=== PATIENT | male | born 1975 | race Caucasian/White ===

== ENCOUNTER 2023-05-27 10:15 | Emergency (ER) | payer OTHER, SELFPAY ==
--- NOTE | ~2023-05-27 | CT_ITS ---
EXAMINATION: CT SOFT TISSUE NECK WITH CONTRAST CLINICAL INFORMATION: Left tonsillar abscess, difficulty swallowing COMPARISON: None. TECHNIQUE: Following the administration of 60 mL of Omnipaque 350 intravenous contrast, helical imaging was performed in the axial plane with generation of coronal and sagittal reformatted images. This CT examination was performed using dose optimization techniques as appropriate, variously including the following: *Automated exposure control. *Adjustment of mA and/or kV according to patient size (this includes techniques or standardized protocols for targeted exams where dose is matched to indication/reason for exam; i.e. extremities or head). *Use of iterative reconstruction technique. DLP: 777 mGy-cm. FINDINGS: There is asymmetric masslike soft tissue within the left aspect of the oropharynx extending from the level of the soft palate involving the left palatine tonsillar fossa, inferiorly along the left lateral oropharyngeal wall to the left base of tongue projecting into the left vallecula, spanning 3.8 cm in craniocaudal dimension. Findings are highly suspicious for primary oropharyngeal neoplasm. A focus of air within the cranial aspect of the mass, presumably on the basis of cavitation/necrosis. There is associated moderate oropharyngeal narrowing. Conglomerate/adjacent partially cystic/necrotic left level 2A lymph nodes, the larger of which measures 1.5 cm in long axis. The fat planes of the skull base and soft tissues of the nasopharynx are unremarkable. The oral cavity is normal. The laryngeal structures are opposed limiting assessment. Trace mucosal disease within the anterior lateral sphenoid sinuses and right maxillary alveolar recess small retention cyst in the left maxillary sinus alveolar recess. The temporomandibular joints are normal. Bilateral torus mandibulari. The submandibular and parotid glands are normal. The thyroid gland is normal. The partially visualized lung apices are clear. Normal opacification of the major neck vessels. Small disc osteophyte complexes at 5 C6 and C6-C7. The imaged portions of the brain parenchyma are unremarkable. CT/CT soft tissue neck w IV con IMPRESSION: 3.8 cm left sided oropharyngeal mass extending from the level of the soft palate involving the left palatine tonsillar fossa, left lateral oropharyngeal wall, and left base of tongue, highly suspicious for squamous cell carcinoma. A focus of air within the cranial aspect of the mass, presumably on the basis of cavitation/necrosis. Pathologic partially cystic/necrotic left level 2A lymph nodes measuring up to 1.5 cm. Recommend ENT consultation advised to guide further management.
[2023-05-27 10:25] VITALS: BP 146/103; PULSE 75; RESP 16; TEMP 36.3; O2SAT 100; BMI 28.9
--- NOTE | 2023-05-27 11:07 | ED.GENADULT ---
HPI - General Adult General Chief complaint: General Medical Stated complaint: Throat swelling Time Seen by Provider: 05/27/23 10:49 Source: patient, family and RN notes reviewed Mode of arrival: ambulatory Limitations: no limitations History of Present Illness HPI narrative: This is a 47-year-old very pleasant male, with a history of hypertension, presenting to the emergency department, accompanied by his mother, with complaints of sore throat x1 week, difficulty swallowing, and fullness sensation in throat. Patient states that last night he was having trouble sleeping last night as he felt very short of breath because of fullness sensation in his throat. He states he has had difficulty swallowing. He denies any fevers or chills. He does endorse increased fatigue. Denies any dizziness lightheadedness blurry vision, chest pain, shortness of breath, abdominal pain, nausea, vomiting or diarrhea. No history of similar symptoms in the past. He went to an urgent care earlier this morning and was told to come to the emergency room for imaging. He states that he feels as though his voice is muffled. He denies smoking history. He does not use nicotine or tobacco. No history of cancer. No night sweats. He admits to having 20 lb weight loss over the last year however states that he has been actively trying to lose weight with having a more healthy diet and being more active. No other complaints or concerns at this time. MD complaint: Sore throat Onset (ago): week(s) Radiation: non-radiation Severity: moderate Quality: sharp Pain Consistency: intermittent Relieving factors: none Exacerbating factors: none Associated symptoms: denies other symptoms Treatments prior to arrival: none Related Data Allergies Allergy/AdvReac Type Severity Reaction Status Date / Time No Known Allergies Allergy Verified 05/27/23 10:25 Review of Systems Review of Systems: Yes all other systems are reviewed and are negative Constitutional: Constitutional: Reports as per [facility] Social History Social History Alcohol intake: current Alcohol intake frequency: holidays/special occasions only Smoked in Last 30 Days: No Use of substances other than those prescribed or required for medical reasons: Yes Substance Use Type: Marijuana Substance Use Frequency: Daily Last Used Substance: Days (ago) Any prior treatment program specific to substance use: No Advance Directives: Yes Advance Directives Information Provided: Yes Advance Directives on File: No Physical Exam ED Vital Signs: Vital Signs - 24 hr 05/27/23 10:25 Temperature 97.3 F Pulse Rate 75 Respiratory Rate 16 Blood Pressure 146/103 H Pulse Oximetry 100 Oxygen Delivery Method Room Air BMI result Body Mass Index 28.9 Const General: cooperative, comfortable and no acute distress Orientation/consciousness: patient oriented x3 Limitations: no limitations HENMT Other: Left tonsil with moderate hypertrophy, slight erythema, no exudates noted. Uvula is midline. No trismus, drooling, or dysphonia. Head: Yes normal to inspection, Yes normocephalic and Yes atraumatic Ears: hearing grossly normal bilaterally General nose exam: Normal external nose present Face and sinus: Yes normal facial exam Mouth: Normal oral and palatal mucosa present, oropharynx normal and moist mucous membranes Throat: Yes posterior oropharynx normal Eyes General: appearance normal, both eyes and all related structures Eyelids: Yes eyelids normal Conjunctivae: conjunctivae normal Sclerae: sclerae normal Pupils: Equal, round and reactive pupils present EOM: EOMs intact bilaterally Neck Other: Anterior cervical lymphadenopathy noted Neck: Yes normal visual inspection and Yes full ROM Lymphatic: no lymphadenopathy noted Chest Chest palpation & inspection: normal inspection of the chest Resp Effort & Inspection: normal respiratory effort and able to speak in complete sentences Auscultation: clear to auscultation bilaterally, no crackles, no rales, no rhonchi and no wheezes Cardio Rate: regular rate Rhythm: regular rhythm Heart sounds: S1 normal heart sound present and S2 normal heart sound present GI Inspection: Yes normal to inspection Skin General skin exam: no rashes or lesions noted Trauma: no lacerations or abrasions Wounds: no wounds Neuro General: patient oriented x3 and moves all extremities Cranial nerves: Yes Equal, round and reactive pupils present Extrem General: Yes normal to inspection Right upper extremity: normal to inspection Left upper extremity: normal to inspection Right lower extremity: normal to inspection Left lower extremity: normal to inspection Course Reevaluation(s) Reevaluation #1: [facility] called Dr. Caebzas, reports that there is a 3.8 cm left-sided oropharyngeal mass extending from the level of the soft palate involving the left palatine tonsillar fossa, left lateral oral pharyngeal wall, and left base of the tongue, highly suspicious for squamous cell carcinoma. There has a focus of air within the cranial aspect of the mass, presumably on the basis of cavitation/necrosis. Pathologic partially cystic/necrotic left level 2A lymph nodes measuring up to 1.5 cm. Recommending ENT consultation to advise further management. Discussed these findings with patient as well as mother at bedside. I spoke to my attending physician, Dr. Lambert. Given these findings, and that we do not have ENT, patient will need to be transferred for a higher level of care. Call sent out to [facility], who declines transfer at this time. Transfer call placed out to [facility]. ED to ED transfer, with accepting physician, Dr. Jorgensen. Patient and mother are agreeable for transport at this time. Patient remained stable, speaking in full sentences, under no acute respiratory distress. Transfer of care initiated. Time: 12:53 Medications Administered Discontinued Medications Generic Name Dose Route Start Last Admin Trade Name Freq PRN Reason Stop Dose Admin Iohexol 100 ml 05/27/23 12:00 05/27/23 12:00 Iohexol 350 Mg/Ml 100 Ml Infus..Btl IV 05/27/23 12:01 60 ml ONCE ONE Administration Medical Decision Making Medical Decision Making [facility] Narrative: This is a 47-year-old male, with a history of hypertension, presenting to the emergency department with complaints of sore throat x1 week. On arrival, patient mildly hypertensive at 146/103, all other vital signs within normal limits. He is speaking in full sentences. He states that believes his voice is muffled. Also endorsing difficulty swallowing and breathing last night. He went to an urgent care and was told to report here to obtain a CT to rule out peritonsillar mass/abscess. He is able to open and close his jaw without difficulty. On arrival, oropharynx is slightly erythematous, with left tonsillar hypertroph. No trismus, drooling, or dysphonia. Differential diagnoses includes strep pharyngitis, tonsillitis, peritonsillar abscess, tonsillar mass. Lungs clear to auscultation bilaterally. Plan: Labs, CT neck with IV contrast, strep swab Differential Diagnosis Differential Diagnoses: The differential diagnosis associated with the presentation includes See above Admission/Observation Consideration of admission/observation: Escalation of care including admission/observation considered Escalation of care required given Lab Data [facility] Lab Attestation statement: I reviewed the patient's lab results. No leukocytosis, stable H&H, chemistry within normal limits. Negative strep. 05/27/23 11:17 05/27/23 11:17 Labs: Lab Results 05/27/23 05/27/23 Range/Units 11:17 11:42 WBC 4.9 (4.8-10.8) X10*3/uL RBC 5.15 (4.60-5.80) X10*6/uL Hgb 15.3 (14.0-18.0) g/dl Hct 44.2 (42.0-52.0) % MCV 85.8 (80.0-98.0) fL MCH 29.7 (27.0-33.0) pg MCHC 34.6 (31.0-36.0) g/dl RDW 13.2 (11.0-16.0) % Plt Count 170 (160-400) X10*3/uL MPV 9.6 (9.4-12.4) fL Immature Gran % (Auto) 0.2 (0.0-0.4) % Neut % (Auto) 47.0 (45-73) % Lymph % (Auto) 38.9 (20-40) % [place] % (Auto) 9.6 (2-11) % Eos % (Auto) 3.7 (0-4) % Baso % (Auto) 0.6 (0-2) % Lymph # (Auto) 1.9 (1.2-4.9) X10*3/uL [place] # (Auto) 0.5 (0.1-1.2) X10*3/uL Eos # (Auto) 0.2 (0.0-0.4) X10*3/uL Baso # (Auto) 0.0 (0.0-0.2) X10*3/uL Abs Immat Gran (auto) 0.01 (0.00-0.03) X10*3/uL Absolute Neuts (auto) 2.3 (2.0-8.3) x10*3/uL Absolute Nucleated RBC 0.000 (0.0-0.012) X10*3/uL Nucleated RBC % (auto) 0.0 (0.0-0.2) /100WBC Sodium 141 (135-145) mmol/L Potassium 4.8 (3.3-5.1) mmol/L Chloride 107 (96-108) mmol/L Carbon Dioxide 27 (22-29) mmol/L Anion Gap 12 (12-20) BUN 11 (9-16) mg/dL Creatinine 1.07 (0.5-1.4) mg/dL Estim Creat Clear Calc 93.1 Estimated GFR > 60 Random Glucose 93 (60-115) mg/dL Calcium 9.0 (8.4-10.2) mg/dL Total Bilirubin 0.5 (0.0-1.0) mg/dL Direct Bilirubin 0.2 (0.0-0.5) mg/dL AST 18 (5-37) U/L ALT 19 (0-40) U/L Alkaline Phosphatase 63 (39-117) U/L Total Protein 6.8 (6.5-8.0) g/dL Albumin 4.0 (3.5-5.0) g/dL S. pyogenes GrpA ARYA Negative (Negative) Radiology Impression Discussion of test interpretation with radiology: I have reviewed the radiologist's reading. Radiologist Impression: CLINICAL INFORMATION: Left tonsillar abscess, difficulty swallowing COMPARISON: None. TECHNIQUE: Following the administration of 60 mL of Omnipaque 350 intravenous contrast, helical imaging was performed in the axial plane with generation of coronal and sagittal reformatted images. This CT examination was performed using dose optimization techniques as appropriate, variously including the following: *Automated exposure control. *Adjustment of mA and/or kV according to patient size (this includes techniques or standardized protocols for targeted exams where dose is matched to indication/reason for exam; i.e. extremities or head). *Use of iterative reconstruction technique. DLP: 777 mGy-cm. FINDINGS: There is asymmetric masslike soft tissue within the left aspect of the oropharynx extending from the level of the soft palate involving the left palatine tonsillar fossa, inferiorly along the left lateral oropharyngeal wall to the left base of tongue projecting into the left vallecula, spanning 3.8 cm in craniocaudal dimension. Findings are highly suspicious for primary oropharyngeal neoplasm. A focus of air within the cranial aspect of the mass, presumably on the basis of cavitation/necrosis. There is associated moderate oropharyngeal narrowing. Conglomerate/adjacent partially cystic/necrotic left level 2A lymph nodes, the larger of which measures 1.5 cm in long axis. The fat planes of the skull base and soft tissues of the nasopharynx are unremarkable. The oral cavity is normal. The laryngeal structures are opposed limiting assessment. Trace mucosal disease within the anterior lateral sphenoid sinuses and right maxillary alveolar recess small retention cyst in the left maxillary sinus alveolar recess. The temporomandibular joints are normal. Bilateral torus mandibulari. The submandibular and parotid glands are normal. The thyroid gland is normal. The partially visualized lung apices are clear. Normal opacification of the major neck vessels. Small disc osteophyte complexes at 5 C6 and C6-C7. The imaged portions of the brain parenchyma are unremarkable. CT/CT soft tissue neck w IV con IMPRESSION: 3.8 cm left sided oropharyngeal mass extending from the level of the soft palate involving the left palatine tonsillar fossa, left lateral oropharyngeal wall, and left base of tongue, highly suspicious for squamous cell carcinoma. A focus of air within the cranial aspect of the mass, presumably on the basis of cavitation/necrosis. Pathologic partially cystic/necrotic left level 2A lymph nodes measuring up to 1.5 cm. Recommend ENT consultation advised to guide further management. Dictated By: Nadja Cabezas Independent Historian Clinical information obtained from an independent historian. History obtained from or confirmed by: Parent Discharge Plan Discharge Clinical Impression: Oropharyngeal mass Patient Disposition: [facility] Transfer Details: ED to ED transfer > [facility]> Dr. Jorgensen
[2023-05-27 11:22] LABS: MANUAL DIFF FLAG NO
[2023-05-27 11:23] LABS: Basophils Percent Auto 0.6 % (0-2); Eosinophils Absolute Auto 0.2 X10*3/uL (0.0-0.4); Eosinophils Percent Auto 3.7 % (0-4); Hematocrit 44.2 % (42.0-52.0); Hemoglobin 15.3 g/dl (14.0-18.0); Imm Gran Abs Auto 0.01 X10*3/uL (0.00-0.03); Imm Gran Pct Auto 0.2 % (0.0-0.4); Lymphocytes Absolute Auto 1.9 X10*3/uL (1.2-4.9); Lymphocytes Percent Auto 38.9 % (20-40); Mean Corpuscular HGB Conc 34.6 g/dl (31.0-36.0); Mean Corpuscular Hemoglobin 29.7 pg (27.0-33.0); Mean Corpuscular Volume 85.8 fL (80.0-98.0); Mean Platelet Volume 9.6 fL (9.4-12.4); Monocytes Absolute Auto 0.5 X10*3/uL (0.1-1.2); Monocytes Percent Auto 9.6 % (2-11); Neutrophils Absolute Auto 2.3 x10*3/uL (2.0-8.3); Platelet Count 170 X10*3/uL (160-400); Red Blood Count 5.15 X10*6/uL (4.60-5.80); Red Cell Distribution Width 13.2 % (11.0-16.0); White Blood Count 4.9 X10*3/uL (4.8-10.8)
[2023-05-27 11:40] LABS: Alanine Aminotransferase 19 U/L (0-40); Alkaline Phosphatase 63 U/L (39-117); Anion Gap 12 (12-20); Aspartate Amino Transferase 18 U/L (5-37); Bilirubin Direct 0.2 mg/dL (0.0-0.5); Bilirubin Total 0.5 mg/dL (0.0-1.0); Blood Urea Nitrogen 11 mg/dL (9-16); Carbon Dioxide 27 mmol/L (22-29); Chloride 107 mmol/L (96-108); Creatinine Clr Calc Pharmacy 93.1; Estimated Glomerular Filt Rate > 60; Glucose Random 93 mg/dL (60-115); Potassium 4.8 mmol/L (3.3-5.1); Sodium 141 mmol/L (135-145); Total Protein 6.8 g/dL (6.5-8.0)
[2023-05-27 11:53] LABS: IDNOW Serial# 08D9AD1C; Strep A Nucleic Acid Negative (Negative)
[2023-05-27] MEDS: iohexoL 350 MG/ML 100 ML INFUS..BTL IV (12:00)
[2023-05-27 14:32] VITALS: BP 156/89; PULSE 56; RESP 16; TEMP 36.7; O2SAT 99
== END 2023-05-27 16:40 | disposition short-term general hospital (02) ==
PROVIDERS: Physician Assistant Medical; Emergency Provider Emergency Medicine; PCP Internal Medicine
DX: J39.2 Other diseases of pharynx (principal); I10 Essential (primary) hypertension
CPT/HCPCS: 36415; 70491; 80048; 80076; 85025; 87651; 99284; 99285; Q9967

== ENCOUNTER 2024-01-21 15:52 | Emergency (ER) | payer OTHER, SELFPAY ==
--- NOTE | ~2024-01-21 | CT_ITS ---
EXAMINATION: CT ANGIOGRAM HEAD CT ANGIOGRAM NECK CLINICAL INFORMATION: Left bipolar vision. Right foot drop. History of tonsillar cancer/abscess. COMPARISON: CT head and cervical spine from 01/21/2024. TECHNIQUE: Initial noncontrast director of marketing analytics imaging of the head and neck was performed. Comparison is made with noncontrast head CT from earlier today. Test bolus sequences followed by intravenous administration 70 mL of Omnipaque 350. Helical imaging was performed in the axial plane from the aortic arch to the skull vertex. Delayed postcontrast imaging of the head was also performed. The data was processed at the mechatronics technologist's workstation for generation of MIP sequences. Angled MIPs and volume rendered reformatted images were also generated at an offline 3D workstation. Stenoses are assessed in accordance with NASCET criteria unless otherwise indicated. This CT examination was performed using dose optimization techniques as appropriate, variously including the following: *Automated exposure control. *Adjustment of mA and/or kV according to patient size (this includes techniques or standardized protocols for targeted exams where dose is matched to indication/reason for exam; i.e. extremities or head). *Use of iterative reconstruction technique. DLP: 1383 mGy-cm FINDINGS: CT Head: There is no evidence of acute intracranial hemorrhage or edematous territorial infarction. Cheng-white matter differentiation is preserved. There is no abnormal attenuation within the brain parenchyma. The ventricles are normal in morphology and size. No evidence for obstructive hydrocephalus. The suprasellar cistern remains widely patent. Normal positioning of the cerebellar tonsils. Mild prominence of the CSF space posterior to the cerebellum. No additional abnormal mass effect or midline shift. No extra-axial fluid collections. No demonstrated abnormal intracranial enhancement or regions of oligemia. No acute soft tissue or osseous abnormalities. Mild mucosal thickening of the paranasal sinuses. The mastoid air cells and middle ear cavities are clear. Left-sided lens extraction. No additional demonstrated abnormalities of the orbits on limited evaluation. CT Neck: The atlantooccipital and atlantoaxial articulations remain well aligned. Straightening of the normal cervical lordosis. Otherwise, there is anatomic alignment of the vertebral bodies and posterior elements. No evidence of acute fracture or subluxation. The vertebral body heights are maintained. Moderate degenerative disc disease from C5-C7. Facet and uncovertebral joint arthropathy leads to osseous encroachment on the neural foramina from C5-C7. There is no prevertebral soft tissue swelling. Chronic smooth mucosal thickening/edema of the pharynx/epiglottis suggestive of posttreatment change. Mild to moderate fat stranding in the left deep soft tissues of the neck. The thyroid gland and remaining cervical soft tissues are within normal limits. The lung apices demonstrate no abnormalities. CT Upper Chest: Nonspecific subcentimeter groundglass opacities in the visualized right upper lobe. Otherwise, the visualized lung apices and upper mediastinum are within normal limits. Neck CTA: Aortic Arch: Normal contour and caliber with mild calcific atherosclerotic disease. Classic 3 vessel branching pattern of the aortic arch. Great Vessel Origins: No significant stenosis of the branch origins. Right Common Carotid Artery: No focal stenosis or occlusion. Cervical Right Internal Carotid Artery: Normal opacification without focal stenosis or occlusion. Left Common Carotid Artery: No focal stenosis or occlusion. Cervical Left Internal Carotid Artery: Mild calcific atherosclerotic disease of the carotid bulb and proximal internal carotid artery without flow-limiting stenosis. Cervical Right Vertebral Artery: Co-dominant. No focal stenosis or occlusion. Cervical Left Vertebral Artery: Co-dominant. No focal stenosis or occlusion. Brain CTA: Intracranial Internal Carotid Arteries: Calcific atherosclerotic disease of the intracranial internal carotid arteries without occlusion or flow-limiting stenosis. Right Anterior Cerebral Artery: Normal A1 segment. Normal opacification of the distal JUSTUS segments. Left Anterior Cerebral Artery: Normal A1 segment. Normal opacification of the distal JUSTUS segments. Anterior Communicating Artery: Normal. Right Middle Cerebral Artery: Normal M1 segment of the MCA without focal stenosis or occlusion. Normal arborization of the distal segments. Left Middle Cerebral Artery: Normal M1 segment of the MCA without focal stenosis or occlusion. Normal arborization of the distal segments. Right Vertebral Artery: Normal V4 segment. Normal opacification of the proximal segments of the posterior inferior cerebellar artery. Left Vertebral Artery: Normal V4 segment. Normal opacification of the proximal segments of the posterior inferior cerebellar artery. Basilar Artery: Normal without focal stenosis or occlusion. Normal appearance of the proximal superior cerebellar arteries. Right Posterior Cerebral Artery: Normal P1 segment. Normal opacification of the distal DAY HABILITATION SUPERVISOR segments. Left Posterior Cerebral Artery: Normal P1 segment. Normal opacification of the distal DAY HABILITATION SUPERVISOR segments. Normal opacification of the superior sagittal, straight, transverse, and sigmoid sinuses. CT/CT angio head neck IMPRESSION: 1. No evidence of acute intracranial hemorrhage or edematous territorial infarction. 2. CTA of the head and neck without proximal occlusion or flow-limiting stenosis. 3. Chronic smooth mucosal thickening/edema of the pharynx/epiglottis suggestive of posttreatment change. Mild to moderate fat stranding in the left deep soft tissues of the neck. 4. Nonspecific subcentimeter groundglass opacities in the visualized right upper lobe. Electronically signed by: Baltazar Saenz DO 01/22/2024 12:41 AM [facility]
--- NOTE | ~2024-01-21 | CT_ITS ---
EXAMINATION: CT HEAD WITHOUT CONTRAST CT CERVICAL SPINE WITHOUT CONTRAST CLINICAL INFORMATION: Blurry vision . History of tonsillar cancer/abscess. COMPARISON: CT neck from 05/27/2023. PET/CT from 11/27/2023. TECHNIQUE: Contiguous axial imaging was performed from the skull base to vertex without intravenous administration of contrast. Contiguous axial imaging was performed from the upper chest through the skull base without intravenous administration of contrast. Coronal and sagittal reformats were obtained at the acquisition workstation. This CT examination was performed using dose optimization techniques as appropriate, variously including the following: *Automated exposure control. *Adjustment of mA and/or kV according to patient size (this includes techniques or standardized protocols for targeted exams where dose is matched to indication/reason for exam; i.e. extremities or head). *Use of iterative reconstruction technique. DLP: 1037 mGy-cm FINDINGS: Head: There is no evidence of acute intracranial hemorrhage or edematous territorial infarction. Cheng-white matter differentiation is preserved. There is no abnormal attenuation within the brain parenchyma. The ventricles are normal in morphology and size. No evidence for obstructive hydrocephalus. The suprasellar cistern remains widely patent. Normal positioning of the cerebellar tonsils. Mild prominence of the CSF space posterior to the cerebellum. No additional abnormal mass effect or midline shift. No extra-axial fluid collections. No acute soft tissue or osseous abnormalities. Mild mucosal thickening of the paranasal sinuses. The mastoid air cells and middle ear cavities are clear. Left-sided lens extraction. No additional demonstrated abnormalities of the orbits on limited evaluation. Cervical Spine: The atlantooccipital and atlantoaxial articulations remain well aligned. Straightening of the normal cervical lordosis. Otherwise, there is anatomic alignment of the vertebral bodies and posterior elements. No evidence of acute fracture or subluxation. The vertebral body heights are maintained. Moderate degenerative disc disease from C5-C7. Facet and uncovertebral joint arthropathy leads to osseous encroachment on the neural foramina from C5-C7. There is no prevertebral soft tissue swelling. Chronic smooth mucosal thickening/edema of the pharynx/epiglottis suggestive of posttreatment change. Mild to moderate fat stranding in the left deep soft tissues of the neck. The thyroid gland and remaining cervical soft tissues are within normal limits. The lung apices demonstrate no abnormalities. CT/CT cervical spine wo IV con IMPRESSION: 1. No evidence of acute intracranial hemorrhage or edematous territorial infarction. 2. No evidence of acute fracture or traumatic subluxation of the cervical spine. Mild to moderate degenerative spondyloarthropathy of the cervical spine. 3. Chronic smooth mucosal thickening/edema of the pharynx/epiglottis suggestive of posttreatment change. Mild to moderate fat stranding in the left deep soft tissues of the neck. Electronically signed by: Baltazar Saenz DO 01/21/2024 06:56 PM [facility]
[2024-01-21 15:59] VITALS: BP 157/97; PULSE 70; RESP 20; TEMP 36.1; O2SAT 100; BMI 22.3
--- NOTE | 2024-01-21 16:00 | ED_ITS ---
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 He also notes Sunday had 1 hour of L eye blurred vision but no headaches. He was referred here to evaluate for possible stroke. Foot drop remains but L eye blurred vision is gone. MD complaint: foot drop, blurred vision Onset (ago): day(s) (Sunday) Location: eyes, right and lower extremity Radiation: non-radiation Relieving factors: immobilization Exacerbating factors: movement Associated symptoms: denies other symptoms Treatments prior to arrival: none Related Data Allergies Allergy/AdvReac Type Severity Reaction Status Date / Time No Known Allergies Allergy Verified 01/21/24 16:02 Review of Systems 2 Review of Systems: Constitutional : No Fever, No Chills, No Fatigue ENT/Mouth : No sore throat, No Rhinorrhea Eyes: No Eye Pain, No Swelling, No Redness Cardiovascular : No Chest Pain, No SOB, No Dyspnea on Exertion Respiratory : No Cough, No Sputum Gastrointestinal : No Nausea, No Vomiting, No Diarrhea, No abdominal Pain Genitourinary : No Dysuria, No Urinary Frequency, No Hematuria, Musculoskeletal : No joint pain, No Myalgias, No Joint Swelling Skin : No Skin Lesions, No rash Neuro : pos Weakness, pos Numbness, No Dizziness, no Headache Psych : No Anxiety/Panic, No Depression All other systems reviewed and are negative [facility] Past Medical History Attestation statement: The following information was validated with the patient. Medical History Hypothyroidism Tonsil cancer Neuropathy Social History Social History Alcohol intake: current Alcohol intake frequency: holidays/special occasions only Substance Use Type: Marijuana Advance Directives: No Advance Directives Information Provided: No Physical Exam ED Vital Signs: Vital Signs - 24 hr 01/21/24 15:59 01/21/24 22:36 Temperature 96.9 F 98.0 F Pulse Rate 70 55 Respiratory Rate 20 16 Blood Pressure 157/97 H 139/91 H Pulse Oximetry 100 100 Oxygen Delivery Method Room Air Room Air BMI result Body Mass Index 22.3 Appearance: Alert. Oriented X3. No acute distress. Eyes: Pupils equal, round and reactive to light. ENT: Pharynx normal. Neck: Normal inspection. Neck supple. CVS: Normal heart rate and rhythm. Pulses normal. Respiratory: No respiratory distress. Breath sounds normal. Abdomen: Soft and non-tender. Skin: Skin warm and dry. Normal skin color. Normal skin turgor. Extremities: No lower extremity edema. Neuro: Oriented X 3. No motor deficit. No sensory deficit. no visual changes R foot difficulty with dorsiflexion has pain as well anterior calero at times with trying to move - has normal ROM of knee and hip. pulses intact, states the leg feels heavy, no joint effusion, no redness, no swelling. No other deficits noted. Course Course Course Narrative: RME performed by Emani Garza PA-C. Patient is a 48 year old assigned male at presenting to the emergency department with right foot drop, left eye blurry vision, and bilateral fingers and toes numbness. Patient states that he a history of tonsilary cancer that he had chemo and radiation for earlier this year. Detailed physical exam and review of systems are deferred to the warehouse stocker. Labs ordered. Patient placed back in the waiting room pending room availability and results. 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 Possible neuropathy and peripheral nerve issue but his blurry vision is odd. Could be MS vs TIA. Symptoms started Saturday if CTA negative will instruct him to take low dose baby aspirin Differential Diagnosis Differential Diagnoses: The differential diagnosis associated with the presentation includes neuropathy, stroke symptoms, TIA, foot drop peripheral nerve issue, MS Admission/Observation Consideration of admission/observation: Escalation of care including admission/observation considered CTA negative at 48 hours - has foot drop at this time will refer to PCP for further outpatient work up including MRI not in afib, no stenosis on CTA, no mass seems peripheral, blurred vision L eye atypical and on differing sides and areas of circulation will place in boot and DC home Lab Data [facility] Lab Attestation statement: I reviewed the patient's lab results. 01/21/24 16:08 01/21/24 16:08 Labs: Lab Results 01/21/24 01/21/24 Range/Units 16:08 23:00 WBC 3.6 L (4.8-10.8) X10*3/uL RBC 4.56 L (4.60-5.80) X10*6/uL Hgb 13.4 L (14.0-18.0) g/dl Hct 38.7 L (42.0-52.0) % MCV 84.9 (80.0-98.0) fL MCH 29.4 (27.0-33.0) pg MCHC 34.6 (31.0-36.0) g/dl RDW 14.2 (11.0-16.0) % Plt Count 123 L D (160-400) X10*3/uL MPV 9.4 (9.4-12.4) fL Immature Gran % (Auto) 0.3 (0.0-0.4) % Neut % (Auto) 67.4 (45-73) % Lymph % (Auto) 19.8 L (20-40) % [place] % (Auto) 10.3 (2-11) % Eos % (Auto) 1.4 (0-4) % Baso % (Auto) 0.8 (0-2) % Lymph # (Auto) 0.7 L (1.2-4.9) X10*3/uL [place] # (Auto) 0.4 (0.1-1.2) X10*3/uL Eos # (Auto) 0.1 (0.0-0.4) X10*3/uL Baso # (Auto) 0.0 (0.0-0.2) X10*3/uL Abs Immat Gran (auto) 0.01 (0.00-0.03) X10*3/uL Absolute Neuts (auto) 2.4 (2.0-8.3) x10*3/uL Absolute Nucleated RBC 0.000 (0.0-0.012) X10*3/uL Nucleated RBC % (auto) 0.0 (0.0-0.2) /100WBC ESR 3 (0-15) MM/HR Sodium 139 (135-145) mmol/L Potassium 4.0 (3.3-5.1) mmol/L Chloride 104 (96-108) mmol/L Carbon Dioxide 26 (22-29) mmol/L Anion Gap 13 (12-20) BUN 18 H (9-16) mg/dL Creatinine 1.12 (0.5-1.4) mg/dL Estim Creat Clear Calc 89.0 Estimated GFR > 60 Random Glucose 91 (60-115) mg/dL Calcium 9.4 (8.4-10.2) mg/dL Magnesium 2.2 (1.6-2.6) mg/dL Total Bilirubin 0.5 (0.0-1.0) mg/dL AST 31 (5-37) U/L ALT 25 (0-40) U/L Alkaline Phosphatase 62 (39-117) U/L C-Reactive Protein 0.11 (< or = 0.50) mg/dL Total Protein 6.8 (6.5-8.0) g/dL Albumin 4.2 (3.5-5.0) g/dL Triglycerides 66 (<150) mg/dL Cholesterol 217 H (<200) mg/dL LDL Cholesterol, Calc 120 H (<100) mg/dL HDL Cholesterol 84 (>40) mg/dL Independent Interpretation I performed an independent interpretation of an: EKG and CT Scan (no mass on initial CT scan) Interpretation: Rate: 57 Rhythm: sinus bradycardia Sharples: normal Normal P waves. Normal LILIAM. Normal QRS complex. ST T wave : normal no MAE qTC: 420 prior studies: no acute ischemia The study has been interpreted contemporaneously by me. . Radiology Impression Discussion of test interpretation with radiology: I have reviewed the radiologist's reading. Independent Historian Clinical information obtained from an independent historian. History obtained from or confirmed by: Parent External Record Review External record reviewed: Outpatient record Discharge Plan Discharge Clinical Impression: Foot drop, right Patient Disposition: Home, Self-Care Instructions: Foot Drop (ED) Additional Instructions: labs reassuring other than mildly low platelets at 123, EKG normal CTA of head and neck no acute stenosis of blood vessels or occlusion no signs of stroke at this time would recommend MRI with PCP and wear walking boot you will need EMG as well Print Language: Tamazight
[2024-01-21 16:13] LABS: MANUAL DIFF FLAG NO
[2024-01-21 16:20] LABS: Basophils Percent Auto 0.8 % (0-2); Eosinophils Absolute Auto 0.1 X10*3/uL (0.0-0.4); Eosinophils Percent Auto 1.4 % (0-4); Hematocrit 38.7 % (42.0-52.0); Hemoglobin 13.4 g/dl (14.0-18.0); Imm Gran Abs Auto 0.01 X10*3/uL (0.00-0.03); Imm Gran Pct Auto 0.3 % (0.0-0.4); Lymphocytes Absolute Auto 0.7 X10*3/uL (1.2-4.9); Lymphocytes Percent Auto 19.8 % (20-40); Mean Corpuscular HGB Conc 34.6 g/dl (31.0-36.0); Mean Corpuscular Hemoglobin 29.4 pg (27.0-33.0); Mean Corpuscular Volume 84.9 fL (80.0-98.0); Mean Platelet Volume 9.4 fL (9.4-12.4); Monocytes Absolute Auto 0.4 X10*3/uL (0.1-1.2); Monocytes Percent Auto 10.3 % (2-11); Neutrophils Absolute Auto 2.4 x10*3/uL (2.0-8.3); Neutrophils Percent Auto 67.4 % (45-73); Platelet Count 123 X10*3/uL (160-400); Red Blood Count 4.56 X10*6/uL (4.60-5.80); Red Cell Distribution Width 14.2 % (11.0-16.0); White Blood Count 3.6 X10*3/uL (4.8-10.8)
[2024-01-21 16:31] LABS: Alanine Aminotransferase 25 U/L (0-40); Albumin Level 4.2 g/dL (3.5-5.0); Alkaline Phosphatase 62 U/L (39-117); Anion Gap 13 (12-20); Aspartate Amino Transferase 31 U/L (5-37); Bilirubin Total 0.5 mg/dL (0.0-1.0); Blood Urea Nitrogen 18 mg/dL (9-16); Calcium 9.4 mg/dL (8.4-10.2); Carbon Dioxide 26 mmol/L (22-29); Chloride 104 mmol/L (96-108); Estimated Glomerular Filt Rate > 60; Glucose Random 91 mg/dL (60-115); Magnesium 2.2 mg/dL (1.6-2.6); Sodium 139 mmol/L (135-145); Total Protein 6.8 g/dL (6.5-8.0)
[2024-01-21 22:36] VITALS: BP 139/91; PULSE 55; RESP 16; TEMP 36.7; O2SAT 100
--- NOTE | 2024-01-21 22:47 | ECG_ITS ---
Test Reason : STROKE SYMPTONS Blood Pressure : / mmHG Vent. Rate : 057 BPM Atrial Rate : 057 BPM P-R Int : 154 ms QRS Dur : 092 ms QT Int : 432 ms P-R-T Axes : 037 012 024 degrees QTc Int : 420 ms Sinus bradycardia Otherwise normal ECG No previous ECGs available Referred By: Caterina Hanson Electronically Signed By:Aiden Mckeon
[2024-01-21 23:20] LABS: C Reactive Protein 0.11 mg/dL (< or = 0.50); Cholesterol 217 mg/dL (<200); HDL Cholesterol 84 mg/dL (>40); LDL Cholesterol Calculated 120 mg/dL (<100); Triglycerides 66 mg/dL (<150)
[2024-01-21 23:45] LABS: Erythrocyte Sedimentation Rate 3 MM/HR (0-15)
[2024-01-22] MEDS: iohexoL 350 MG/ML 100 ML INFUS..BTL 70 ML IV (00:24)
[2024-01-22 01:00] VITALS: BP 142/81; PULSE 62; RESP 16; TEMP 37.1; O2SAT 100
[2024-01-22 01:02] VITALS: BP 142/81; PULSE 62; RESP 16; TEMP 37.1; O2SAT 100
[2024-01-22 07:18] LABS: Estimated Average Glucose 94 mg/dL; Hemoglobin A1C 105.1399 umol/L; Hemoglobin A1c % 4.9 % (<6.0); Total Hemoglobin (HGBA1C) 3442.5049 umol/L
== END 2024-01-22 01:20 | disposition home or self-care (01) ==
PROVIDERS: Physician Assistant Medical; Emergency Provider Emergency Medicine; PCP Internal Medicine
DX: M21.371 Foot drop, right foot (principal); H53.8 Other visual disturbances; R00.1 Bradycardia, unspecified; Z79.899 Other long term (current) drug therapy
CPT/HCPCS: 36415; 70450; 70496; 70498; 72125; 80053; 80061; 83036; 83735; 85025; 85652; 86140; 93005; 99284; 99285; Q9967

== ENCOUNTER → 2024-01-21 22:47 | Outpatient (BNV) | payer OTHER, SELFPAY | PROVIDERS: Emergency Provider Emergency Medicine; PCP Internal Medicine; Visit Provider Internal Medicine Cardiovascular Disease | DX: R00.1 Bradycardia, unspecified (principal) | CPT/HCPCS: 93010 ==